=== PATIENT | male | born 1970 | race Caucasian/White ===

== ENCOUNTER 2020-12-16 00:29 | Emergency (ER) | payer OTHER ==
[~2020-12-16] VITALS: Ht 172.7 cm; Wt 115.9 kg
[2020-12-16] MEDS ORDERED: MORPHINE SULFATE 4 MG/ML INJ. IVP ONE (00:45)
[2020-12-16] MEDS ORDERED: ONDANSETRON PF 4 MG/2 ML VIAL. IVP ONE (00:45)
[2020-12-16] MEDS ORDERED: KETOROLAC 30 MG/ML VIAL. IVP ONE (00:45)
[2020-12-16] MEDS ORDERED: IV NORMAL SALINE 1000ML BAG 1,000 ML IV ONE (00:45)
[2020-12-16 01:09] LABS: BASO # 0.1 x10^3/uL (0.0-0.2); BASO % 1 % (0-3); EOS # 0.2 x10^3/uL (0.0-0.7); EOS % 1 % (0-3); HEMOGLOBIN 15.2 g/dL (13.0-17.5); LYMPH # 3.7 x10^3/uL (1.0-4.8); LYMPH % 24 % (24-48); MEAN CORPUSCULAR HEMOGLOBIN 28 pg (25-35); MEAN CORPUSCULAR HGB CONC 34 g/dL (31-37); MEAN CORPUSCULAR VOLUME 82 fL (79-100); MONO # 1.6 x10^3/uL (0.0-1.1); MONO % 11 % (0-9); NEUT # 9.8 x10^3/uL (1.8-7.7); NEUT % 63 % (31-73); PLATELET COUNT 354 x10^3/uL (140-400); RED BLOOD COUNT 5.46 x10^6/uL (4.30-5.70); RED CELL DISTRIBUTION WIDTH 15.4 % (11.5-14.5); WHITE BLOOD COUNT 15.5 x10^3/uL (4.0-11.0)
[2020-12-16 01:25] LABS: ALBUMIN 3.3 g/dL (3.4-5.0); ALBUMIN/GLOBULIN RATIO 0.8 (1.0-1.7); CALCIUM 9.2 mg/dL (8.5-10.1); CREATININE 1.3 mg/dL (0.7-1.3); GFR 58.2; POTASSIUM 4.4 mmol/L (3.5-5.1); TOTAL BILIRUBIN 0.5 mg/dL (0.2-1.0); TOTAL PROTEIN 7.4 g/dL (6.4-8.2)
[2020-12-16] MEDS ORDERED: HYDROmorphone 2 MG/ML VIAL IVP ONE (02:30)
--- NOTE | 2020-12-16 03:00 | RAD ---
Exam: CT abdomen/pelvis without intravenous contrast Indication: Left flank pain Comparison: None Technique: Helical CT imaging performed of the abdomen and pelvis without the use of intravenous cont rast. Sagittal and coronal reformats were obtained. One or more of the following individualized dose reduction techniques were utilized for this examinat ion: 1. Automated exposure control 2. Adjustment of the mA and/or kV according to patient size 3. Use of iterative reconstruction technique. Findings: Inherently limited evaluation without intravenous contrast. Lower chest: Mild atelectasis in the lung bases. Heart is normal in size. Liver: Unremarkable noncontrast appearance of the liver. Gallbladder/Biliary Tree: Normal. Pancreas: Normal. Spleen: Normal. Adrenal Glands: Normal. Kidneys/Ureters/Bladder: There is mild left hydroureteronephrosis due to a 3 mm calculus at the left ureterovesicular junction. Mild left perinephric fat stranding. Kidneys are normal in size. No nephro lithiasis. Right ureter is normal. Bladder is unremarkable. Reproductive Organs: Prostate gland is normal. Stomach, small bowel, and colon: The stomach, small bowel, and appendix are normal. There is sigmoid diverticulosis. Vasculature: No aortic aneurysm. Lymph Nodes: No lymphadenopathy. Peritoneum and retroperitoneum: No free fluid or free air. Bones: No acute osseous abnormality. Mild osteoarthrosis of the hips. There is moderate degenerative disc disease at L5-S1 with a large posterior disc osteophyte complex resulting in right lateral reces s narrowing. Miscellaneous: Small fat-containing umbilical hernia. Impression: 1. Mild left hydroureteronephrosis due to a 3 mm calculus at the left ureterovesicular junction. 2. Sigmoid diverticulosis. 3. Moderate degenerative disc disease at L5-S1 with a large disc osteophyte complex resulting in righ t lateral recess narrowing. Electronically signed by: Bruna Van MD (12/16/2020 2:58 AM) [id number]
--- NOTE | 2020-12-16 03:09 | PHYS DOC ---
Past Medical History Past Medical History: No Pertinent History Past Surgical History: No Surgical History, Tonsillectomy Smoking Status: Never Smoker Alcohol Use: Occasionally General Adult EDM: Chief Complaint: ABDOMINAL PAIN HPI: HPI: Patient is a 50 year old male who present to ER for evaluation of left lower abdominal pain started suddenly about 1 hour ago. Patient denies any nausea vomiting, no cough, no fever. Patient denies any urinary symptoms, no blood in his urine. Patient denies any history of kidney stones or diverticulitis. Review of Systems: Review of Systems: Constitutional: Denies fever or chills. [] Eyes: Denies change in visual acuity. [] HENT: Denies nasal congestion or sore throat. [] Respiratory: Denies cough or shortness of breath. [] Cardiovascular: Denies chest pain or edema. [] GI: Positive for left abdominal pain, no nausea vomiting, no diarrhea : Denies dysuria. [] Musculoskeletal: Denies back pain or joint pain. [] Integument: Denies rash. [] Neurologic: Denies headache, focal weakness or sensory changes. [] Endocrine: Denies polyuria or polydipsia. [] Lymphatic: Denies swollen glands. [] Psychiatric: Denies depression or anxiety. [] Heart Score: C/O Chest Pain: N/A Risk Factors: Risk Factors: DM, Current or recent (<one month) smoker, HTN, HLP, family history of CAD, obesity. Risk Scores: Score 0 - 3: 2.5% MACE over next 6 weeks - Discharge Home Score 4 - 6: 20.3% MACE over next 6 weeks - Admit for Clinical Observation Score 7 - 10: 72.7% MACE over next 6 weeks - Early Invasive Strategies Current Medications: Current Medications Medications (Trade) Dose Ordered Sig/Johnson Start Time Stop Time Status Last Admin Dose Admin Hydromorphone HCl (Dilaudid) 1 mg 1X ONCE 12/16/20 02:30 12/16/20 02:31 DC 12/16/20 02:51 1 MG Ketorolac Tromethamine (Toradol 30mg Vial) 30 mg 1X ONCE 12/16/20 00:45 12/16/20 01:04 DC 12/16/20 01:13 30 MG Morphine Sulfate (Morphine Sulfate) 4 mg 1X ONCE 12/16/20 00:45 12/16/20 01:04 DC 12/16/20 01:16 4 MG Ondansetron HCl (Zofran) 4 mg 1X ONCE 12/16/20 00:45 12/16/20 01:04 DC 12/16/20 01:09 4 MG Sodium Chloride 1,000 ml @ 1,000 mls/hr 1X ONCE 12/16/20 00:45 12/16/20 01:44 DC 12/16/20 00:45 1,000 MLS/HR Allergies: Allergies: Allergies Coded Allergies Type Severity Reaction Last Updated Verified No Known Drug Allergies 12/16/20 No Physical Exam: PE: Constitutional: Well developed, well nourished, in acute distress due to pain. Nontoxic appearing. HENT: Normocephalic, atraumatic, bilateral external ears normal, oropharynx moist, no oral exudates, nose normal. [] Eyes: PERRLA, EOMI, conjunctiva normal, no discharge. [] Neck: Normal range of motion, no tenderness, supple, no stridor. [] Cardiovascular:Heart rate regular rhythm, no murmur [] Lungs & Thorax: Bilateral breath sounds clear to auscultation [] Abdomen: Bowel sounds normal, soft, left lower quadrant tender to palpation. No masses, no pulsatile masses. [] Skin: Warm, dry, no erythema, no rash. [] Back: No tenderness, no CVA tenderness. [] Extremities: No tenderness, no cyanosis, no clubbing, ROM intact, no edema. [] Neurologic: Alert and oriented X 3, normal motor function, normal sensory function, no focal deficits noted. [] Psychologic: Affect normal, judgement normal, mood normal. [] Current Patient Data: Labs: Laboratory Tests Test 12/16/20 00:50 White Blood Count 15.5 x10^3/uL (4.0-11.0) H Red Blood Count 5.46 x10^6/uL (4.30-5.70) Hemoglobin 15.2 g/dL (13.0-17.5) Hematocrit 45.0 % (39.0-53.0) Mean Corpuscular Volume 82 fL (79-100) Mean Corpuscular Hemoglobin 28 pg (25-35) Mean Corpuscular Hemoglobin Concent 34 g/dL (31-37) Red Cell Distribution Width 15.4 % (11.5-14.5) H Platelet Count 354 x10^3/uL (140-400) Neutrophils (%) (Auto) 63 % (31-73) Lymphocytes (%) (Auto) 24 % (24-48) Monocytes (%) (Auto) 11 % (0-9) H Eosinophils (%) (Auto) 1 % (0-3) Basophils (%) (Auto) 1 % (0-3) Neutrophils # (Auto) 9.8 x10^3/uL (1.8-7.7) H Lymphocytes # (Auto) 3.7 x10^3/uL (1.0-4.8) Monocytes # (Auto) 1.6 x10^3/uL (0.0-1.1) H Eosinophils # (Auto) 0.2 x10^3/uL (0.0-0.7) Basophils # (Auto) 0.1 x10^3/uL (0.0-0.2) Sodium Level 134 mmol/L (136-145) L Potassium Level 4.4 mmol/L (3.5-5.1) Chloride Level 101 mmol/L (98-107) Carbon Dioxide Level 24 mmol/L (21-32) Anion Gap 9 (6-14) Blood Urea Nitrogen 18 mg/dL (8-26) Creatinine 1.3 mg/dL (0.7-1.3) Estimated GFR (Cockcroft-Gault) 58.2 BUN/Creatinine Ratio 14 (6-20) Glucose Level 125 mg/dL (70-99) H Calcium Level 9.2 mg/dL (8.5-10.1) Magnesium Level 2.0 mg/dL (1.8-2.4) Total Bilirubin 0.5 mg/dL (0.2-1.0) Aspartate Amino Transferase (AST) 21 U/L (15-37) Alanine Aminotransferase (ALT) 27 U/L (16-63) Alkaline Phosphatase 96 U/L (46-116) Total Protein 7.4 g/dL (6.4-8.2) Albumin 3.3 g/dL (3.4-5.0) L Albumin/Globulin Ratio 0.8 (1.0-1.7) L Lipase 153 U/L (73-393) Laboratory Tests 12/16/20 00:50 Laboratory Tests 12/16/20 00:50 Vital Signs: Vital Signs Date Time Temp Pulse Resp B/P (MAP) Pulse Ox O2 Delivery O2 Flow Rate FiO2 12/16/20 02:51 18 99 Room Air 12/16/20 01:15 68 198/82 (120) 12/16/20 00:50 98.6 98.6 EKG: EKG: [] Radiology/Procedures: Radiology/Procedures: [][facility] [address] [place] [address] IMAGING REPORT Signed PATIENT: IBRAHIMA LIEBERMAN ACCOUNT: [id number] : 1970 LOCATION: ER AGE: 50 SEX: M EXAM STATUS: REG ER ORD. PHYSICIAN: LIYA ESPANA DO REASON: LEFT FLANK PAIN PROCEDURE: CT ABDOMEN PELVIS WO CONTRAST Exam: CT abdomen/pelvis without intravenous contrast Indication: Left flank pain Comparison: None Technique: Helical CT imaging performed of the abdomen and pelvis without the use of intravenous contrast. Sagittal and coronal reformats were obtained. One or more of the following individualized dose reduction techniques were utilized for this examination: 1. Automated exposure control 2. Adjustment of the mA and/or kV according to patient size 3. Use of iterative reconstruction technique. Findings: Inherently limited evaluation without intravenous contrast. Lower chest: Mild atelectasis in the lung bases. Heart is normal in size. Liver: Unremarkable noncontrast appearance of the liver. Gallbladder/Biliary Tree: Normal. Pancreas: Normal. Spleen: Normal. Adrenal Glands: Normal. Kidneys/Ureters/Bladder: There is mild left hydroureteronephrosis due to a 3 mm calculus at the left ureterovesicular junction. Mild left perinephric fat stranding. Kidneys are normal in size. No nephrolithiasis. Right ureter is normal. Bladder is unremarkable. Reproductive Organs: Prostate gland is normal. Stomach, small bowel, and colon: The stomach, small bowel, and appendix are normal. There is sigmoid diverticulosis. Vasculature: No aortic aneurysm. Lymph Nodes: No lymphadenopathy. Peritoneum and retroperitoneum: No free fluid or free air. Bones: No acute osseous abnormality. Mild osteoarthrosis of the hips. There is moderate degenerative disc disease at L5-S1 with a large posterior disc osteophyte complex resulting in right lateral recess narrowing. Miscellaneous: Small fat-containing umbilical hernia. Impression: 1. Mild left hydroureteronephrosis due to a 3 mm calculus at the left ureterovesicular junction. 2. Sigmoid diverticulosis. 3. Moderate degenerative disc disease at L5-S1 with a large disc osteophyte complex resulting in right lateral recess narrowing. Electronically signed by: Bruna Van MD (12/16/2020 2:58 AM) [id number] DICTATED and SIGNED BY: BRUNA VAN MD DATE: 12/16/20 [id number] 0 Course & Med Decision Making: Course & Med Decision Making Pertinent Labs and Imaging studies reviewed. (See chart for details) Patient is a 50-year-old male who present to ER due to left lower abdominal pain, CT scan showed a small 3 mm left ureteral stone at the ureterovesicular muscular junction, with mild hydronephrosis,. No evident infection, patient was given pain medication in ER, he felt much better. Patient was discharged home with a strainer and a phone number to urology for follow-up. Reny Disclaimer: [employer] Disclaimer: This electronic medical record was generated, in whole or in part, using a voice recognition dictation system. Departure Departure Impression: Primary Impression: Kidney stone on left side Disposition: 01 HOME / SELF CARE / HOMELESS Condition: IMPROVED Referrals: MARY KAY DUNCAN MD (PCP) Follow-up with your doctor in 2 days for urology referral. Patient Instructions: Diet for Kidney Stones, Kidney Stones Additional Instructions: Please call UROLOGY FOR FOLLOW UP IN 2 DAYS. [facility] / [place] [address] [place] [id number] [place] [address] [place] [address] [place] [address] [facility], [address] [place] [address] Scripts Tamsulosin Hcl (FLOMAX) 0.4 Mg Cap.er.24h 1 CAP PO DAILY for 10 Days, #10 CAP 11 Refills Prov: LIYA ESPANA DO 12/16/20 Naproxen Sodium (ANAPROX DS) 550 Mg Tablet 1 TAB PO BID PRN for PAIN for 15 Days, #30 TAB 0 Refills Prov: LIYA ESPANA DO 12/16/20 Hydrocodone/Acetaminophen (Hydrocodone-Acetamin 5-325 mg) 1 Each Tablet 1 EACH PO Q6HRS, #15 TAB Prov: LIYA ESPANA DO 12/16/20 LIYA ESPANA DO Dec 16, 2020 03:09
[2020-12-16 03:50] LABS: BILIRUBIN,URINE NEGATIVE (NEG); CLARITY,URINE CLEAR; COLOR,URINE YELLOW; NITRITE,URINE NEGATIVE (NEG); PROTEIN,URINE NEGATIVE (NEG-TRACE); UROBILINOGEN,URINE 0.2 mg/dL (0.2 mg/dL)
[2020-12-16 03:56] LABS: BACTERIA,URINE FEW /HPF (0-FEW); RBC,URINE RARE /HPF (0-2)
[2020-12-16 05:20] VITALS: BP 123/63
[2020-12-16] MEDS ORDERED: HYDR-2759 PO (05:28)
[2020-12-16] MEDS ORDERED: NAPR-682 PO (05:28)
[2020-12-16] MEDS ORDERED: TAMS0.4C97 PO (05:28)
== END 2020-12-16 05:45 | disposition home or self-care (01) ==
LOC: ER 00:29
DX: N13.2 Hydronephrosis with renal and ureteral calculous obstruction (principal)
CPT/HCPCS: 36415; 74176; 80053; 81001; 83690; 83735; 85025; 96361; 96374; 96375; 99285; J1170; J1885; J2270; J2405; J7030